=== PATIENT | female | born 1960 | race Caucasian/White ===

== ENCOUNTER 2017-08-29 10:14 | Day surgery (SDC) | payer BC ==
[~2017-08-29 10:14] MED LIST: Lactated Ringers 1,000 ML IV SCH; Lidocaine 1%/Sod Bicarbonate in NS 8.4% 1 ML Syringe PRN; Sodium Chloride 0.9% 10 ML Syringe FLUSH PRN
[2017-08-29] MEDS ORDERED: Bupivacaine 0.25% 30 ML SDV ONE (12:09)
[2017-08-29] MEDS ORDERED: Lidocaine 1% 30 ML SDV ONE (12:09)
--- NOTE | 2017-09-03 06:43 | PCM.OPNOTE ---
- General Post-Op/Procedure Note Date of Surgery/Procedure: 08/29/17 Operative Procedure(s): left ring index finger dip cyst excision Pre Op Diagnosis: left index finger DIP cyst Post-Op Diagnosis: Same Anesthesia Technique: Local Primary Surgeon: Jae Gordon Web Master: Jodi Gamino in mLs: 5 Complications: None Condition: Good
--- NOTE | 2017-09-03 07:33 | OR ---
DATE OF OPERATION: 08/29/2017 SURGEON: Jae Gordon MD OPERATION PERFORMED: Left index finger DIP cyst excision. PREOPERATIVE DIAGNOSIS: Left index finger DIP cyst. POSTOPERATIVE DIAGNOSIS: Left index finger DIP cyst. ANESTHESIA: None. GUEST SERVICE AIDE: Jodi Gamino PA-C. ESTIMATED BLOOD LOSS: 5 mL. COMPLICATIONS: None. CONDITION: Stable. DESCRIPTION OF PROCEDURE: The patient was identified in the preoperative holding area. Proper site was marked and identified by the surgeon. The patient was taken back to the operative theater where after adequate anesthesia, the patient's left upper extremity was sterilely prepped and draped in the usual sterile fashion. OR time-out was performed. At this time, the left upper extremity was exsanguinated with the use of an Esmarch. Esmarch was then used as a tourniquet on the forearm. A 1% lidocaine without epinephrine and 0.25% lidocaine without epinephrine were then injected into the flexor tendon sheath as well as doing a digital block on either side. Also, it was blocked just proximally to the area of the cyst. Once this had setup, a dorsal lateral incision was made just volar to the cyst. The cyst was undermined. The cyst was identified and the cyst was excised. Down to its stalk at the DIP joint, there was a small amount of fluid that did come out. There was noted to be redundant skin and an area on the skin where the cyst had been. Due to difficulty with closure, we did not excise the skin at this time and we will allow it to remodel. At this time, adequate saline was irrigated through the wound, 4-0 nylon simple suture was used for closure of the skin. The patient tolerated the procedure well and was sent to the PACU in stable condition. Note: Assist was needed in this case secondary to extra hands for holding the patient and retraction throughout the case as well as closure. TRACEY /[id number]
== END 2017-08-29 14:05 | disposition home or self-care (01) ==
LOC: JD.SDS 10:14
PROVIDERS: ATTEND Orthopaedic Surgery
DX: M25.842 Other specified joint disorders, left hand (principal); F32.9 Major depressive disorder, single episode, unspecified; K21.9 Gastro-esophageal reflux disease without esophagitis; E10.9 Type 1 diabetes mellitus without complications; F10.20 Alcohol dependence, uncomplicated; J30.2 Other seasonal allergic rhinitis; Z79.899 Other long term (current) drug therapy; Z87.891 Personal history of nicotine dependence; Z79.82 Long term (current) use of aspirin; Z98.890 Other specified postprocedural states; Z98.51 Tubal ligation status
CPT/HCPCS: 26160; J3490